=== PATIENT | female | born 1965 | race Caucasian/White ===

== ENCOUNTER → 2022-11-17 | Outpatient (CLI) | payer SELFPAY ==
--- NOTE | 2022-11-17 08:59 | US_ITS ---
INDICATION: ELEVATED LAB LEVELS EXAMINATION: Ultrasound US Abdomen Limited (quadrant) TECHNIQUE: Smallwood scale and color doppler imaging was performed of the right upper quadrant. COMPARISON: FINDINGS: LIVER: There is normal echotexture measuring 14.5 cm. No focal hepatic lesion. There is no free fluid. GALLBLADDER AND BILIARY TREE: No shadowing gallstone, pericholecystic fluid or gallbladder wall thickening is demonstrated. The proximal common bile duct measures 2.4 mm, which is within normal limits for the patient''s age. Songraphic Brady''s sign: Negative. PANCREAS: No focal abnormality is demonstrated in the pancreas. No pancreatic ductal dilatation. RIGHT KIDNEY: 10.7 x 4.2 x 5.0 cm. The cortex is 12 mm. No hydronephrosis. No shadowing calculi. US/Abdomen Limited IMPRESSION: No acute sonographic abnormality is demonstrated in the right upper quadrant. Electronically Signed: Duran Rodrigues DO at 17:05 EDT ,
== END | disposition home or self-care (01) ==
LOC: US 08:53
PROVIDERS: PCP Family Medicine
DX: R74.01 Elevation of levels of liver transaminase levels (principal)
CPT/HCPCS: 76705